=== PATIENT | female | born 1955 | race Caucasian/White ===

== ENCOUNTER → 2016-09-22 | Outpatient (CLI) | payer MEDICARE, BC ==
[~2016-09-22] MED LIST: B-121000 MCG PO; CYMBALTA 60MG60 MG PO; FORTAMET500 M1 PO; HYZAAR 12.5 MG-1 TAB PO; LIPITOR 10MG10 MG PO; MULTI VITAMINS1 TAB PO; NUVIGIL50 MG; VITAMIN D 1001000 IU PO
== END ==
LOC: BHSO 15:31
DX: F33.42 Major depressive disorder, recurrent, in full remission (principal)

== ENCOUNTER → 2016-12-16 | Outpatient (CLI) | payer MEDICARE, BC | LOC: BHSO 15:33 | DX: F33.41 Major depressive disorder, recurrent, in partial remission (principal) ==

== ENCOUNTER 2017-02-07 06:59 | Outpatient (CLI) | payer MEDICARE, BC ==
[~2017-02-07] VITALS: Ht 170.2 cm; Wt 82.3 kg
[2017-02-07] VITALS (14 sets, daily range): BP systolic 105–153; BP diastolic 57–87; PULSE 61–75
== END 2017-02-07 12:00 | disposition home or self-care (01) ==
LOC: COL.RAD 06:59
DX: D14.30 Benign neoplasm of unspecified bronchus and lung (principal)

== ENCOUNTER → 2017-03-21 | Outpatient (CLI) | payer MEDICARE, BC | LOC: BHSO 12:52 | DX: F41.1 Generalized anxiety disorder (principal) ==

== ENCOUNTER → 2017-06-20 | Outpatient (CLI) | payer MEDICARE, BC | LOC: BHSO 13:30 | DX: F33.42 Major depressive disorder, recurrent, in full remission (principal) ==

== ENCOUNTER 2017-11-01 06:59 | Outpatient (CLI) | payer MEDICARE, BC ==
[~2017-11-01] VITALS: Ht 170.2 cm; Wt 81.0 kg
[2017-11-01] VITALS (20 sets, daily range): BP systolic 111–141; BP diastolic 32–87; PULSE 61–90; TEMP 97.9
[~2017-11-01 06:59] MED LIST changes: +VITAMIN B-6100 MG PO; -VITAMIN D 1001000 IU PO; +VITAMIN D32000 I1 PO
== END 2017-11-01 12:58 | disposition home or self-care (01) ==
LOC: COL.RAD 06:59
DX: R91.1 Solitary pulmonary nodule (principal); R07.9 Chest pain, unspecified; G89.18 Other acute postprocedural pain; Z90.710 Acquired absence of both cervix and uterus
CPT/HCPCS: J3010

== ENCOUNTER → 2017-12-19 | Outpatient (CLI) | payer MEDICARE, BC | LOC: BHSO 13:56 | DX: F33.41 Major depressive disorder, recurrent, in partial remission (principal) | CPT/HCPCS: G0463 ==

== ENCOUNTER → 2018-06-19 | Outpatient (CLI) | payer MEDICARE, BC | LOC: BHSO 13:58 | DX: F33.41 Major depressive disorder, recurrent, in partial remission (principal) | CPT/HCPCS: G0463 ==

== ENCOUNTER → 2018-09-12 | Outpatient (CLI) | payer MEDICARE, BC | LOC: BHSO 14:15 | DX: F41.1 Generalized anxiety disorder (principal) | CPT/HCPCS: G0463 ==

== ENCOUNTER → 2019-02-12 | Outpatient (CLI) | payer MEDICARE, BC | LOC: BHSO 13:01 | DX: F33.41 Major depressive disorder, recurrent, in partial remission (principal) | CPT/HCPCS: G0463 ==

== ENCOUNTER → 2019-06-12 | Outpatient (CLI) | payer MEDICARE, BC | LOC: MC.RAD 13:14 | DX: Z12.31 Encounter for screening mammogram for malignant neoplasm of breast (principal) ==

== ENCOUNTER → 2019-08-13 | Outpatient (CLI) | payer MEDICARE, BC | LOC: BHSO 13:57 | DX: F33.1 Major depressive disorder, recurrent, moderate (principal) | CPT/HCPCS: G0463 ==

== ENCOUNTER → 2019-09-10 | Outpatient (CLI) | payer MEDICARE, BC | LOC: BHSO 13:58 | DX: F33.41 Major depressive disorder, recurrent, in partial remission (principal) | CPT/HCPCS: G0463 ==

== ENCOUNTER → 2019-10-09 | Outpatient (CLI) | payer MEDICARE, BC | LOC: BHSO 14:12 | DX: F33.1 Major depressive disorder, recurrent, moderate (principal) | CPT/HCPCS: G0463 ==

== ENCOUNTER → 2020-02-20 | Outpatient (CLI) | payer MEDICARE, BC | LOC: BHSO 13:02 | DX: F33.1 Major depressive disorder, recurrent, moderate (principal) | CPT/HCPCS: G0463 ==

== ENCOUNTER → 2020-03-21 | Outpatient (CLI) | payer MEDICARE, BC | LOC: BHSO 14:37 | DX: F33.41 Major depressive disorder, recurrent, in partial remission (principal) | CPT/HCPCS: G0463 ==